=== PATIENT | male | born 1975 | race Caucasian/White ===

== ENCOUNTER 2019-11-13 08:12 | Emergency (ER) | payer MEDICAID ==
[2019-11-13] MEDS ORDERED: Ketorolac 30 MG/ML SDV IVPUSH ONE (08:44)
[2019-11-13] MEDS ORDERED: Sodium Chloride 0.9% 1,000 ML IV SCH (08:45)
--- NOTE | 2019-11-13 08:54 | EDM.PDOC ---
ED HPI GENERAL MEDICAL PROBLEM - General Chief Complaint: Chest Pain Stated Complaint: CHEST PAINS, HEADACHES Time Seen by Provider: 11/13/19 08:40 Source of Information: Reports: Patient History Limitations: Reports: No Limitations - History of Present Illness INITIAL COMMENTS - FREE TEXT/NARRATIVE: 44-year-old male who has had an chest pain for the past 4 days, headaches, gen eralized malaise and pleuritic pain with breathing. Mild cough. No fevers or chills, he had nausea and had one emesis 3 days ago but now just has persistent nausea. No abdominal pain, rashes, no joint pains or peripheral edema. His main complaint is the chest pain and headaches. He has not been exposed to tick bites that he knows of. Onset: Gradual Duration: Day(s): (4 days) Associated Symptoms: Reports: Chest Pain, Cough, Headaches, Loss of Appetite, Malaise, Nausea/Vomiting. Denies: Fever/Chills, Shortness of Breath, Weakness Left Chest Pain Score (Numeric/FACES): 6 Head Pain Score (Numeric/FACES): 8 - Related Data Allergies Allergy/AdvReac Type Severity Reaction Status Date / Time No Known Allergies Allergy Verified 11/13/19 08:20 Home Meds: Home Meds NK [No Known Home Meds] 11/13/19 [History] Past Medical History HEENT History: Reports: Impaired Vision Musculoskeletal History: Reports: Fracture Other Musculoskeletal History: r finger partial amputation - Infectious Disease History Infectious Disease History: Reports: Chicken Pox - Past Surgical History Head Surgeries/Procedures: Reports: None HEENT Surgical History: Reports: None Neurological Surgical History: Reports: Lumbar Spine Musculoskeletal Surgical History: Reports: None Dermatological Surgical History: Reports: None Social & Family History - Tobacco Use Smoking Status *Q: Current Every Day Smoker Years of Tobacco use: 30 Packs/Tins Daily: 1 Used Tobacco, but Quit: No Second Hand Smoke Exposure: Yes - Caffeine Use Caffeine Use: Reports: Coffee - Recreational Drug Use Recreational Drug Use: No ED ROS GENERAL - Review of Systems Review Of Systems: See Below Constitutional: Reports: Malaise, Decreased Appetite. Denies: Fever, Chills HEENT: Reports: No Symptoms Respiratory: Reports: Pleuritic Chest Pain, Cough Cardiovascular: Reports: Chest Pain. Denies: Palpitations GI/Abdominal: Reports: Decreased Appetite, Nausea, Vomiting. Denies: Abdominal Pain, Constipation, Diarrhea : Reports: No Symptoms Neurological: Reports: Headache. Denies: Confusion, Dizziness, Seizure, Difficulty Walking, Weakness Psychiatric: Reports: No Symptoms ED EXAM, GENERAL - Physical Exam Exam: See Below Exam Limited By: No Limitations General Appearance: Alert, No Apparent Distress (Looks uncomfortable but not distressed) Eye Exam: Bilateral Eye: Normal Inspection Head: Atraumatic Neck: Supple, Non-Tender Respiratory/Chest: Other (Chronic sounding crackles in both bases, very tender to palpation along the left costochondral junction near the sternum) Cardiovascular: Regular Rate, Rhythm GI/Abdominal: Soft, Non-Tender Extremities: Normal Inspection. No: Pedal Edema EKG INTERPRETATION Rhythm: NSR ST-T: Elevated (When compared to previous EKG, minimal ST elevation is possible in V1 V2 and anterior leads) Course - Vital Signs Last Recorded V/S: Last Vital Signs Temp 98.6 F 11/13/19 08:25 Pulse 96 11/13/19 10:19 Resp 18 11/13/19 10:19 BP 136/90 11/13/19 10:19 Pulse Ox 95 11/13/19 10:19 - Orders/Labs/Meds Orders: Active Orders 24 hr Category Date Time Status EKG Documentation Completion [RC] ASDIRECTED Care 11/13/19 08:39 Active EKG 12 Lead [EK] Routine Ther 11/13/19 08:38 Ordered Labs: Laboratory Tests 11/13/19 11/13/19 11/13/19 Range/Units 08:20 08:20 08:20 WBC 10.7 (4.5-11.0) K/uL RBC 5.57 (4.30-5.90) M/uL Hgb 16.7 H (12.0-15.0) g/dL Hct 49.6 (40.0-54.0) % MCV 89 (80-98) fL MCH 30 (27-31) pg MCHC 34 (32-36) % Plt Count 243 (150-400) K/uL Neut % (Auto) 72 H (36-66) % Lymph % (Auto) 19 L (24-44) % [place] % (Auto) 8 H (2-6) % Eos % (Auto) 0 L (2-4) % Baso % (Auto) 0 (0-1) % D-Dimer, Quantitative 129 (0.0-400.0) ng/mL Sodium 137 L (140-148) mmol/L Potassium 3.4 L (3.6-5.2) mmol/L Chloride 100 (100-108) mmol/L Carbon Dioxide 24 (21-32) mmol/L Anion Gap 16.4 H (5.0-14.0) mmol/L BUN 14 (7-18) mg/dL Creatinine 1.2 (0.8-1.3) mg/dL Est Cr Clr Drug Dosing 80.64 mL/min Estimated GFR (MDRD) > 60 (>60) Glucose 115 H (74-106) mg/dL Calcium 9.1 (8.5-10.1) mg/dL Total Bilirubin 1.2 H (0.2-1.0) mg/dL AST 14 L (15-37) U/L ALT 23 (12-78) U/L Alkaline Phosphatase 70 (46-116) U/L Troponin I < 0.017 (0.000-0.056) ng/mL Total Protein 7.9 (6.4-8.2) g/dL Albumin 3.9 (3.4-5.0) g/dL Globulin 4.0 H (2.3-3.5) g/dL Albumin/Globulin Ratio 1.0 L (1.2-2.2) Meds: Medications Discontinued Medications Generic Name Dose Route Start Last Admin Trade Name Freq PRN Reason Stop Dose Admin Sodium Chloride 1,000 mls @ 500 mls/hr 11/13/19 08:45 11/13/19 08:54 Normal Saline IV 500 mls/hr ASDIRECTED CHRIS Administration Ceftriaxone Sodium 1 gm/ 50 mls @ 100 mls/hr 11/13/19 09:45 11/13/19 09:43 Sodium Chloride IV 11/13/19 10:14 100 mls/hr ONETIME ONE Administration Ketorolac Tromethamine 30 mg 11/13/19 08:44 11/13/19 08:49 Toradol IVPUSH 11/13/19 08:45 30 mg ONETIME ONE Administration - Re-Assessments/Exams Free Text/Narrative Re-Assessment/Exam: 11/13/19 08:55 IV was started, patient will be hydrated with 500 cc of normal saline an hour, and given 30 mg of IV Toradol. CBC, CMP, troponin and d-dimer were obtained as well as a two-view chest x-ray. 11/13/19 09:35 Reassuring, troponin is 0, d-dimer is normal, white count is within normal limits but chest x-ray does show an infiltrate in his right lower lobe. He was given 1 g of IV Rocephin, and will be continued on Ceftin 500 twice daily for the next 7 days he is to rest of the weekend and return if worsening. Departure - Departure Time of Disposition: 10:49 Disposition: Home, Self-Care 01 Clinical Impression: Right lower lobe pneumonia Qualifiers: Pneumonia type: due to unspecified organism Qualified Code(s): J18.9 - Pneumonia, unspecified organism - Discharge Information Instructions: Community-Acquired Pneumonia, Adult Referrals: PCP,None [Primary Care Provider] - Forms: ED Department Discharge Care Plan Goals: Rest, fluids, take antibiotic as prescribed and recheck next week if not improving satisfactorily. Return sooner if worse despite treatment. Sepsis Event Note (ED) - Evaluation Sepsis Screening Result: No Definite Risk - Focused Exam Vital Signs: Vital Signs Temp Pulse Resp BP Pulse Ox 11/13/19 10:19 96 18 136/90 95 11/13/19 10:09 90 17 133/90 93 L 11/13/19 09:59 89 20 135/89 94 L 11/13/19 09:49 94 19 148/99 H 97 11/13/19 09:39 95 17 138/94 H 94 L 11/13/19 09:29 98 19 143/97 H 94 L 11/13/19 09:19 99 17 137/101 H 93 L 11/13/19 09:09 100 24 H 140/97 H 92 L 11/13/19 08:49 104 H 20 137/92 H 93 L 11/13/19 08:39 107 H 23 H 144/98 H 93 L 11/13/19 08:31 108 H 20 139/100 H 95 11/13/19 08:25 98.6 F 100 18 138/106 H 96 11/13/19 08:23 98.6 F 100 18 138/106 H 96 - My Orders Last 24 Hours: My Active Orders 11/13/19 08:38 EKG 12 Lead [EK] Routine 11/13/19 08:39 EKG Documentation Completion [RC] ASDIRECTED - Assessment/Plan Last 24 Hours: My Active Orders 11/13/19 08:38 EKG 12 Lead [EK] Routine 11/13/19 08:39 EKG Documentation Completion [RC] ASDIRECTED
--- NOTE | 2019-11-13 09:09 | CR ---
CHEST: 2 view CLINICAL HISTORY:Dyspnea COMPARISON:2016 FINDINGS: Patchy density in the right lower lobe. Left lung is clear. There are emphysematous changes bilaterally greater on the right. Heart size and pulmonary vascularity are normal. Impression: Right lower lobe infiltrate Emphysematous changes
[2019-11-13] MEDS ORDERED: cefTRIAXone 1 GM in Sodium Chloride 0.9% 50 ML IV ONE ×2 (09:27→09:45)
[2019-11-13 10:40] VITALS: BP 136/90; PULSE 96
== END 2019-11-13 10:49 | disposition home or self-care (01) ==
LOC: JP.ED 08:12
DX: J18.9 Pneumonia, unspecified organism (principal); F17.210 Nicotine dependence, cigarettes, uncomplicated
CPT/HCPCS: 36415; 71046; 80053; 84484; 85025; 85379; 93005; 96365; 96375; 99285; J0696; J1885; J7030; J7050; 93010

== ENCOUNTER 2021-05-18 07:29 | Emergency (ER) | payer MEDICAID ==
[2021-05-18 07:47] VITALS: BP 145/99; PULSE 86
[2021-05-18 08:36] LABS: CORONAVIRUS COVID-19 NAA NEGATIVE (NEGATIVE)
== END 2021-05-18 09:34 | disposition home or self-care (01) ==
LOC: JP.ED 07:29
DX: F10.10 Alcohol abuse, uncomplicated (principal); Z72.0 Tobacco use; Z20.822 Contact with and (suspected) exposure to COVID-19
CPT/HCPCS: 0241U; 36415; 80305; 80307; 99284; 99283

== ENCOUNTER 2021-09-08 08:03 | Day surgery (SDC) | payer OTHER, MEDICAID ==
[~2021-09-08 08:03] MED LIST: Dextrose 5%-Lactated Ringers 1,000 ML IV SCH
[2021-09-08] MEDS ORDERED: Acetaminophen 500 MG Tab PO ONE (08:30)
[2021-09-08] MEDS ORDERED: ceFAZolin 2 GM in Premix Bag 1 BAG IV ONE (09:00)
[2021-09-08] MEDS ORDERED: Lidocaine 1% with EPINEPHrine 1:100,000 50 ML MDV ONE (10:11)
[2021-09-08] MEDS ORDERED: Bupivacaine 0.5% 50 ML MDV ONE (10:11)
[2021-09-08] MEDS ORDERED: Midazolam 1 MG/ML 2 ML SDV ONE ×2 (11:00→11:26)
[2021-09-08] MEDS ORDERED: fentaNYL 100 MCG/2 ML SDV ONE ×2 (11:00→11:30)
[2021-09-08] MEDS ORDERED: Propofol 200 MG/20 ML SDV ONE ×4 (11:00→12:12)
[2021-09-08] MEDS ORDERED: Ketorolac 30 MG/ML SDV ONE (11:26)
[2021-09-08] MEDS ORDERED: Meropenem 500 MG SDV ONE (11:43)
[2021-09-08] MEDS ORDERED: Meropenem 500 MG SDV IRR ONE (11:49)
[2021-09-08] MEDS ORDERED: hydrOXYzine HCL 100 MG/2 ML SDV IM ONE (12:39)
[2021-09-08] MEDS ORDERED: Lactated Ringers 1,000 ML ONE (12:41)
[2021-09-08] MEDS ORDERED: Dextrose 5%-Lactated Ringers 1,000 ML IV SCH (14:15)
[2021-09-08] MEDS ORDERED: HYDROmorphone 0.5 MG/0.5 ML Syringe IVPUSH PRN (15:00)
[2021-09-08] MEDS ORDERED: hydrOXYzine HCL 100 MG/2 ML SDV IM PRN (15:00)
[2021-09-08] MEDS ORDERED: HYDROmorphone 1 MG/ML Syringe IV PRN (15:00)
[2021-09-08] MEDS ORDERED: Ondansetron 4 MG/2 ML SDV IVPUSH PRN (15:00)
[2021-09-08] MEDS: ceFAZolin 2 GM in Premix Bag 1 BAG IV SCH (18:21)
[2021-09-09] MEDS: oxyCODONE 5 MG Tab PO PRN ×2 (00:39→07:37)
[2021-09-09] MEDS: ceFAZolin 2 GM in Premix Bag 1 BAG IV SCH (02:10)
[2021-09-09 07:55] VITALS: BP 119/79; PULSE 80
[2021-09-09] MEDS ORDERED: Magnesium Hydroxide 400 MG/5 ML Susp 30 ML Cup PO PRN (08:04)
[2021-09-09] MEDS ORDERED: Ketorolac 30 MG/ML SDV IVPUSH ONE (08:10)
[2021-09-09] MEDS ORDERED: Citalopram 20 MG Tab PO SCH (09:00)
== END 2021-09-09 08:50 | disposition home or self-care (01) ==
LOC: JP.SDS 08:03 → JP.MS 12:45 → JP.SDS 09-09 08:50
PROVIDERS: ATTEND Surgery
DX: K40.30 Unilateral inguinal hernia, with obstruction, without gangrene, not specified as recurrent (principal); K41.30 Unilateral femoral hernia, with obstruction, without gangrene, not specified as recurrent; F17.200 Nicotine dependence, unspecified, uncomplicated; Z01.812 Encounter for preprocedural laboratory examination; Z20.822 Contact with and (suspected) exposure to COVID-19
CPT/HCPCS: A9270-GY; C1713; C1781; J0690; J1885; J2020; J2185; J2250; J2704; J3010; J3410; J3490; J7120; J7121; U0002